=== PATIENT | male | born 1980 | race Caucasian/White ===

== ENCOUNTER 2020-08-26 20:22 | Emergency (ER) | payer SELFPAY ==
[~2020-08-26] VITALS: Ht 177.8 cm; Wt 127.9 kg
[2020-08-26 20:25] VITALS: BP 150/100
--- NOTE | 2020-08-26 20:31 | NUR ---
PT AMBULATED TO ER BED 7 W/ STEADY GAIT.
--- NOTE | 2020-08-26 20:36 | NUR ---
ERMD AT BEDSIDE FOR MEDICAL EVALUATION.
--- NOTE | 2020-08-26 20:45 | NUR ---
DR. DUONG AT BEDSIDE
--- NOTE | 2020-08-26 20:50 | NUR ---
PATIENT PRESENTS TO ED WITH VAGUE COMPLAINTS INCLUDING LEFT THIGH PAIN . PT STATES I SAW MY PMD TODAY, HE GAVE ME NEW MEDICINE FOR HIGH BLOOD PRESSURE . DENIES N/V/D; SKIN IS PINK/WARM/DRY; AAOX4 WITH EVEN AND STEADY GAIT; LUNGS CLEAR BL; HR EVEN AND REGULAR; PT DENIES ANY FEVER, CP, SOB, OR COUGH AT THIS TIME; PATIENT STATES PAIN OF 0/10 AT THIS TIME; VSS; PATIENT POSITIONED FOR COMFORT; HOB ELEVATED; BEDRAILS UP X2; BED DOWN. ER MD MADE AWARE OF PT STATUS.
[2020-08-26 20:57] VITALS: BP 150/100
--- NOTE | 2020-08-26 20:57 | NUR ---
Patient discharged with v/s stable. Written and verbal after care instructions given and explained. Patient verbalized understanding. Ambulatory with steady gait. All questions addressed prior to discharge. Advised to follow up with PMD.
== END 2020-08-26 20:57 | disposition home or self-care (01) ==
LOC: MED 20:22
DX: R42 Dizziness and giddiness (principal); I10 Essential (primary) hypertension; E11.9 Type 2 diabetes mellitus without complications; Z88.0 Allergy status to penicillin; Z79.899 Other long term (current) drug therapy
CPT/HCPCS: 99281; 99283

== ENCOUNTER 2020-10-23 18:30 | Emergency (ER) | payer MEDICAID ==
[~2020-10-23] VITALS: Ht 177.8 cm; Wt 122.5 kg
[2020-10-23 18:52] VITALS: BP 152/98
--- NOTE | 2020-10-23 18:55 | NUR ---
AMBULATED TO BED 7
--- NOTE | 2020-10-23 19:04 | NUR ---
40 Y/O MALE C/O BACK PAIN RADIATES TO LEFT SHOULDER AND CHEST 10/10 DESCRIBES SHARP AND SORE. TODAY NECK CRAMPS AND WORSENING BACK 10/10 AND CHEST PAIN 2/10 SYMPTOMS X1 MONTH PT DENIES N/V, DENIES FEVER/CHILLS. PT DENIES RECENT TRAUMA. PMH: HTN, HLD, DM RX: METROPOLOL, ASA, HYDROCHLOROTIAZIDE, METFORMIN ALLERGIES TO AMOXICILLIN
--- NOTE | 2020-10-23 19:17 | NUR ---
RECIVED PATIENT REPORT FROM CATHY JAMES, TRANSFER OF CARE.
--- NOTE | 2020-10-23 19:29 | NUR ---
Pt's current Accu check 108 and oral temperature 98.0 F.
--- NOTE | 2020-10-23 20:10 | NUR ---
ERMD AT BEDSIDE EVALUATING PATIENT.
[2020-10-23] MEDS ORDERED: ACETAMINOPHEN 650 MG SUPP RC ONE (20:30)
[2020-10-23] MEDS ORDERED: ACETAMINOPHEN EXTRA STRENGTH 500 MG TAB PO ONE (20:50)
[2020-10-23 20:51] LABS: BASOPHILS % (AUTO) 0.4 % (0.0-2.0); EOSINOPHILS # (AUTO) 0.2 K/uL (0-0.4); EOSINOPHILS % (AUTO) 1.8 % (0.0-4.0); HEMATOCRIT 43.1 % (36-52); HEMOGLOBIN 14.6 g/dL (12.0-18.0); LYMPHOCYTES # (AUTO) 1.7 K/uL (2.0-11.5); LYMPHOCYTES % (AUTO) 18.5 % (20.5-51.1); MEAN CORPUSCULAR HEMOGLOBIN 28 pg (27-31); MEAN CORPUSCULAR HGB CONC 34 g/dL (33-37); MEAN CORPUSCULAR VOLUME 81.7 fL (80-94); MONOCYTES # (AUTO) 0.6 K/uL (0.8-1.0); MONOCYTES % (AUTO) 6.1 % (1.7-9.3); NEUTROPHILS # (AUTO) 6.9 K/uL (1.8-7.7); NEUTROPHILS % (AUTO) 73.2 % (42.2-75.2); PLATELET COUNT (AUTO) 247 K/uL (140-450); RED BLOOD CELL COUNT(AUTO) 5.28 MIL/uL (4.20-6.10); RED CELL DISTRIBUTION WIDTH 13.1 % (11.6-13.7); WHITE BLOOD COUNT (AUTO) 9.4 K/uL (4.8-10.8)
--- NOTE | 2020-10-23 21:00 | NUR ---
XRAY AT BEDSIDE.
[2020-10-23 21:02] LABS: PROTHROMBIN TIME 10.2 secs (10.8-13.4)
--- NOTE | 2020-10-23 21:02 | NUR ---
EKG PERFORMED AT BEDSIDE. EKG READS SINUS RHYTHM @ 91
[2020-10-23 21:03] LABS: ALBUMIN 4.2 g/dL (3.4-5.0); ANION GAP 12.5 (8-16); CARBON DIOXIDE 28.3 mmol/L (21-32); CREATININE 1.2 mg/dL (0.6-1.3); POTASSIUM 3.8 mmol/L (3.5-5.1); TOTAL BILIRUBIN 0.5 mg/dL (0.0-1.0)
--- NOTE | 2020-10-23 21:06 | NUR ---
EKG BEING PERFORMED AT BEDSIDE BY EMT.
--- NOTE | 2020-10-23 21:50 | NUR ---
Note [email or web address] in EDM - 10/23/20 at 2159 by [email or web address] Patient discharged with v/s stable. Written and verbal after care instructions given and explained to parent/guardian. Parent/Guardian verbalized understanding of instructions. Ambulatory with steady gait. All questions addressed prior to discharge. ID band removed. Parent/Guardian advised to follow up with PMD. Rx of ZOFRAN, MIRALAX given. Parent/Guardian educated on indication of medication including possible reaction and side effects. Opportunity to ask questions provided and answered.
[2020-10-23 21:55] VITALS: BP 154/92
--- NOTE | 2020-10-23 21:55 | NUR ---
Patient discharged with v/s stable. Written and verbal after care instructions given and explained. Patient alert, oriented and verbalized understanding of instructions. Ambulatory with steady gait. All questions addressed prior to discharge. ID band removed. Patient advised to follow up with PMD. Rx of LIDOCAINE, NAPROXEN given. Patient educated on indication of medication including possible reaction and side effects. Opportunity to ask questions provided and answered.
== END 2020-10-23 21:55 | disposition home or self-care (01) ==
LOC: MED 18:30
DX: M25.512 Pain in left shoulder (principal); E11.9 Type 2 diabetes mellitus without complications; I10 Essential (primary) hypertension; E78.00 Pure hypercholesterolemia, unspecified; Z88.1 Allergy status to other antibiotic agents
CPT/HCPCS: 36415; 71045; 73030; 80053; 83880; 84484; 85025; 85610; 85730; 93005; 99285

== ENCOUNTER 2020-12-05 14:11 | Emergency (ER) | payer MEDICAID ==
[~2020-12-05] VITALS: Ht 177.8 cm; Wt 117.0 kg
[2020-12-05 14:13] VITALS: BP 138/92
--- NOTE | 2020-12-05 14:23 | NUR ---
C/O HEADACHE , NAUSEA X 5DAYS AND LEFT CHEST PAIN X 2 DAYS . BLOOD SUGAR 104, BP 138/92 AT THIS TIME. PMH: HTN, DM, HLD
[2020-12-05 14:46] LABS: BASOPHILS % (AUTO) 0.6 % (0.0-2.0); EOSINOPHILS # (AUTO) 0.3 K/uL (0-0.4); EOSINOPHILS % (AUTO) 4.5 % (0.0-4.0); HEMATOCRIT 45.4 % (36-52); LYMPHOCYTES # (AUTO) 1.8 K/uL (2.0-11.5); LYMPHOCYTES % (AUTO) 25.6 % (20.5-51.1); MEAN CORPUSCULAR HEMOGLOBIN 27 pg (27-31); MEAN CORPUSCULAR HGB CONC 33 g/dL (33-37); MEAN CORPUSCULAR VOLUME 82.9 fL (80-94); MONOCYTES # (AUTO) 0.5 K/uL (0.8-1.0); MONOCYTES % (AUTO) 7.2 % (1.7-9.3); NEUTROPHILS # (AUTO) 4.4 K/uL (1.8-7.7); NEUTROPHILS % (AUTO) 62.1 % (42.2-75.2); PLATELET COUNT (AUTO) 246 K/uL (140-450); RED BLOOD CELL COUNT(AUTO) 5.48 MIL/uL (4.20-6.10); RED CELL DISTRIBUTION WIDTH 13.6 % (11.6-13.7); WHITE BLOOD COUNT (AUTO) 7.2 K/uL (4.8-10.8)
[2020-12-05 15:05] LABS: ALBUMIN 4.2 g/dL (3.4-5.0); ANION GAP 14.2 (8-16); CARBON DIOXIDE 28.5 mmol/L (21-32); CREATININE 1.4 mg/dL (0.6-1.3); POTASSIUM 3.7 mmol/L (3.5-5.1); TOTAL BILIRUBIN 0.3 mg/dL (0.0-1.0)
[2020-12-05 15:08] LABS: PROTHROMBIN TIME 9.9 secs (10.8-13.4)
[2020-12-05] MEDS ORDERED: KETOROLAC 15 MG/ML VIAL IVP ONE (15:35)
[2020-12-05] MEDS ORDERED: NACL 0.9% 1,000 ML IV ONE (15:35)
[2020-12-05 18:09] VITALS: BP 138/92
== END 2020-12-05 18:14 | disposition home or self-care (01) ==
LOC: MED 14:11
DX: R51.9 Headache, unspecified (principal); R07.89 Other chest pain; E11.9 Type 2 diabetes mellitus without complications; I10 Essential (primary) hypertension; E78.5 Hyperlipidemia, unspecified; Z88.1 Allergy status to other antibiotic agents
CPT/HCPCS: 36415; 71045; 80053; 84484; 85025; 85610; 85730; 93005; 96361; 96374; 99285; J1885

== ENCOUNTER 2021-01-10 16:00 | Emergency (ER) | payer MEDICAID ==
[~2021-01-10] VITALS: Ht 177.8 cm; Wt 117.5 kg
[2021-01-10 16:07] VITALS: BP 131/81
--- NOTE | 2021-01-10 16:48 | NUR ---
40 Y/O MALE BIB SELF C/O NON RADIATING CHEST PAIN X 3 DAYS AND CHRONIC BACK PAIN. DENIES SOB/ COUGH. PT PLACED ON BEDSIDE MONITOR. A&O X4. POSITIONED FOR COMFORT, BED LOCKED, IN LOWEST POSITION. PMH: DM II, HTN, HLD MEDS: IBUPROFEN, NAPROXEN, ASA 81MG, METOPROLOL, LOSARTAN, METFORMIN, LIPITOR AND UNKNOWN DIURETIC. NKA
--- NOTE | 2021-01-10 16:49 | NUR ---
Dr. Beckman is evaluating patient at bedside.
--- NOTE | 2021-01-10 17:08 | NUR ---
X-ray at bedside.
[2021-01-10 17:30] LABS: BASOPHILS % (AUTO) 0.2 % (0.0-2.0); EOSINOPHILS # (AUTO) 0.3 K/uL (0-0.4); HEMATOCRIT 44.9 % (36-52); HEMOGLOBIN 14.9 g/dL (12.0-18.0); LYMPHOCYTES # (AUTO) 1.6 K/uL (2.0-11.5); LYMPHOCYTES % (AUTO) 23.1 % (20.5-51.1); MEAN CORPUSCULAR HEMOGLOBIN 28 pg (27-31); MEAN CORPUSCULAR HGB CONC 33 g/dL (33-37); MEAN CORPUSCULAR VOLUME 83.7 fL (80-94); MONOCYTES # (AUTO) 0.5 K/uL (0.8-1.0); MONOCYTES % (AUTO) 6.5 % (1.7-9.3); NEUTROPHILS # (AUTO) 4.7 K/uL (1.8-7.7); NEUTROPHILS % (AUTO) 66.2 % (42.2-75.2); PLATELET COUNT (AUTO) 259 K/uL (140-450); RED BLOOD CELL COUNT(AUTO) 5.36 MIL/uL (4.20-6.10); RED CELL DISTRIBUTION WIDTH 13.9 % (11.6-13.7); WHITE BLOOD COUNT (AUTO) 7.1 K/uL (4.8-10.8)
[2021-01-10 17:45] LABS: ALBUMIN 4.4 g/dL (3.4-5.0); ANION GAP 10.4 (8-16); CREATININE 1.6 mg/dL (0.6-1.3); POTASSIUM 4.4 mmol/L (3.5-5.1); TOTAL BILIRUBIN 0.6 mg/dL (0.0-1.0)
[2021-01-10] MEDS ORDERED: LABETALOL 100 MG/20 ML VIAL IVP ONE (17:45)
[2021-01-10 18:13] VITALS: BP 131/81
== END 2021-01-10 18:14 | disposition home or self-care (01) ==
LOC: MED 16:00
DX: R07.89 Other chest pain (principal); I10 Essential (primary) hypertension; M54.9 Dorsalgia, unspecified; E11.9 Type 2 diabetes mellitus without complications; E78.5 Hyperlipidemia, unspecified; Z88.1 Allergy status to other antibiotic agents
CPT/HCPCS: 36415; 71045; 80053; 84484; 85025; 93005; 99285

== ENCOUNTER 2021-01-24 01:08 | Emergency (ER) | payer MEDICAID ==
[~2021-01-24] VITALS: Ht 177.8 cm; Wt 120.7 kg
[2021-01-24 01:12] VITALS: BP 156/95
--- NOTE | 2021-01-24 01:18 | NUR ---
PT AMBULATORY TO BED #11
--- NOTE | 2021-01-24 01:18 | NUR ---
VISUAL ACUITY FOLLOWS: R- 20/40, LT- 20/40, BOTH- 20/25.
--- NOTE | 2021-01-24 01:20 | NUR ---
ERMD AT BEDSIDE FOR MEDICAL EVALUATION.
--- NOTE | 2021-01-24 01:25 | NUR ---
PT ASSESSMENT COMPLETED BY MONICA , NO NURSING INTERVENTIONS NEEDED AT THIS TIME.
[2021-01-24 01:56] VITALS: BP 143/84
== END 2021-01-24 01:56 | disposition home or self-care (01) ==
LOC: MED 01:08
DX: H53.8 Other visual disturbances (principal); M79.10 Myalgia, unspecified site; E11.9 Type 2 diabetes mellitus without complications; I10 Essential (primary) hypertension; Z88.1 Allergy status to other antibiotic agents
CPT/HCPCS: 99282

== ENCOUNTER 2021-02-17 14:39 | Emergency (ER) | payer MEDICAID ==
[~2021-02-17] VITALS: Ht 177.8 cm; Wt 115.7 kg
[2021-02-17 14:48] VITALS: BP 150/89
--- NOTE | 2021-02-17 14:53 | NUR ---
Pt ambulated to ER bed 7 with steady gait.
--- NOTE | 2021-02-17 15:09 | NUR ---
RN at pt bedside for further evaluation.
--- NOTE | 2021-02-17 15:14 | NUR ---
41 YEAR OLD MALE COMPLAINS OF CONGESTION X 3 DAYS. PT DENIES COUGH, BUT STATES HE HAS TROUBLE BREATHING AT TIMES. PT AOX4, BREATHING EVEN AND UNLABORED, SKIN WARM AND DRY. BED IN LOWEST POSITION, LOCKED, BED RAIL UPX1. PMH - DM2, HTN ALLERGIES - AMOXICILLIN
[2021-02-17 16:41] VITALS: BP 150/89
== END 2021-02-17 16:42 | disposition home or self-care (01) ==
LOC: MED 14:39
DX: K57.92 Diverticulitis of intestine, part unspecified, without perforation or abscess without bleeding (principal); R07.9 Chest pain, unspecified; E11.9 Type 2 diabetes mellitus without complications; I10 Essential (primary) hypertension; Z88.1 Allergy status to other antibiotic agents
CPT/HCPCS: 71045; 93005; 99283

== ENCOUNTER 2021-03-01 22:31 | Emergency (ER) | payer SELFPAY ==
[~2021-03-01] VITALS: Ht 175.3 cm; Wt 118.4 kg
[2021-03-01 22:35] VITALS: BP 166/97
--- NOTE | 2021-03-01 22:40 | NUR ---
PT. IS A 41 Y/O MALE THAT CAME INTO ED WITH C/O OF NECK PAIN. PT. STATES THAT THE PAIN STARTED 3 DAYS AGO AND "HURTS MORE DURING NIGHTTIME." HE RATES HIS PAIN AT A 6/10 ON THE PAIN SCALE. PT. ALSO STATES HE "FEELS A BALL ON HIS NECK." SKIN IS PINK/WARM/DRY; AAOX4 WITH EVEN AND STEADY GAIT; HR EVEN AND REGULAR; PT DENIES ANY FEVER, CP, SOB, OR COUGH AT THIS TIME; VSS; PATIENT POSITIONED FOR COMFORT; HOB ELEVATED; BEDRAILS UP X2; BED DOWN. ER MD MADE AWARE OF PT STATUS. PMH: HTN, DM 2 ALLERGIES: AMOXICILLIN
--- NOTE | 2021-03-01 22:50 | NUR ---
DR. UREÑA AT BEDSIDE FOR EXAMINATION.
[2021-03-01] MEDS ORDERED: KETOROLAC 30 MG/ML VIAL IM ONE (23:10)
--- NOTE | 2021-03-02 00:05 | NUR ---
STREP SWAB DONE AND TAKEN TO LAB.
--- NOTE | 2021-03-02 00:30 | NUR ---
PT. SITTING COMFORTABLY IN BED AND VOICES NO COMPLAINTS.
[2021-03-02] MEDS ORDERED: CEPH-588 PO (00:42)
[2021-03-02] MEDS ORDERED: IBUP-1842 PO (00:42)
[2021-03-02 00:54] VITALS: BP 153/95
--- NOTE | 2021-03-02 00:54 | NUR ---
Patient discharged with v/s stable. Written and verbal after care instructions given and explained. Patient alert, oriented and verbalized understanding of instructions. Ambulatory with steady gait. All questions addressed prior to discharge. ID band removed. Patient advised to follow up with PMD. Rx of KEFLEX AND MOTRIN given. Patient educated on indication of medication including possible reaction and side effects. Opportunity to ask questions provided and answered.
== END 2021-03-02 00:54 | disposition home or self-care (01) ==
LOC: MED 22:31
DX: R59.0 Localized enlarged lymph nodes (principal); M54.2 Cervicalgia; E11.9 Type 2 diabetes mellitus without complications; I10 Essential (primary) hypertension; Z88.0 Allergy status to penicillin
CPT/HCPCS: 86308; 87081; 96372; 99283; J1885

== ENCOUNTER 2021-03-05 21:55 | Emergency (ER) | payer SELFPAY ==
[~2021-03-05] VITALS: Ht 177.8 cm; Wt 115.7 kg
[~2021-03-05 21:55] MED LIST: CEPH-588 PO; IBUP-1842 PO
[2021-03-05 22:03] VITALS: BP 169/90
--- NOTE | 2021-03-05 22:05 | NUR ---
TO LOBBY A/W BED AMBULATORY
--- NOTE | 2021-03-05 23:18 | NUR ---
PATIENT LEFT WITHOUT BEING SEEN BY DR. LU. NO FURTHER CARE PROVIDED FOR PATIENT.
== END 2021-03-05 23:18 | disposition left against medical advice (07) ==
LOC: MED 21:55
DX: J02.9 Acute pharyngitis, unspecified (principal); Z53.21 Procedure and treatment not carried out due to patient leaving prior to being seen by health care provider

== ENCOUNTER 2021-03-11 02:42 | Emergency (ER) | payer SELFPAY ==
[~2021-03-11] VITALS: Ht 177.8 cm; Wt 114.3 kg
[2021-03-11 02:55] VITALS: BP 167/102
--- NOTE | 2021-03-11 02:55 | NUR ---
TO BED AMBULATORY
--- NOTE | 2021-03-11 03:25 | NUR ---
Patient assessment completed per ERMD, no nursing interventions required at this time.
[2021-03-11 04:22] VITALS: BP 167/102
== END 2021-03-11 04:22 | disposition home or self-care (01) ==
LOC: MED 02:42
DX: R59.0 Localized enlarged lymph nodes (principal); E11.9 Type 2 diabetes mellitus without complications; I10 Essential (primary) hypertension; Z88.0 Allergy status to penicillin
CPT/HCPCS: 99281

== ENCOUNTER 2021-03-14 20:55 | Emergency (ER) | payer MEDICAID ==
[~2021-03-14] VITALS: Ht 177.8 cm; Wt 114.3 kg
[2021-03-14 21:05] VITALS: BP 164/105
--- NOTE | 2021-03-14 21:05 | NUR ---
TO BED AMBULATORY
[2021-03-14] MEDS ORDERED: CLONIDINE HYDROCHLORIDE 0.1 MG TAB PO ONE (21:10)
--- NOTE | 2021-03-14 21:15 | NUR ---
PT BIB SELF FOR C/O HIGH BP, STATING "I FEEL LIKE I CANT CALM MYSELF." PT REPORTS NECK PAIN X 2 WEEKS, STATING HE HAS BEEN GOOGLING WHAT COULD BE WRONG WHICH HAS BEEN CAUSING HIM ANXIETY. PT REPORTS HX OF HTN AND TAKES MEDICATIONS AT HOME. PT DENIES CP, SOB, FEVER, CHILLS, N/V/D. HX: HTN, DM2, HIGH CHOLESTEROL ALLERGIES: AMOXICILLIN
--- NOTE | 2021-03-14 21:19 | NUR ---
ERMD AT BEDSIDE.
[2021-03-14] MEDS ORDERED: ATA25 PO (21:30)
--- NOTE | 2021-03-14 21:32 | NUR ---
BP 160/85. ERMD MADE AWARE. PT DENIES PAIN OR DISCOMFORT AT THIS TIME.
[2021-03-14 21:35] VITALS: BP 160/85
--- NOTE | 2021-03-14 21:35 | NUR ---
Patient discharged with v/s stable. Written and verbal after care instructions given and explained. Patient alert, oriented and verbalized understanding of instructions. Ambulatory with steady gait. All questions addressed prior to discharge. ID band removed. Patient advised to follow up with PMD. Rx of ATARAX HCL given. Patient educated on indication of medication including possible reaction and side effects. Opportunity to ask questions provided and answered.
== END 2021-03-14 21:35 | disposition home or self-care (01) ==
LOC: MED 20:55
DX: F41.9 Anxiety disorder, unspecified (principal); I10 Essential (primary) hypertension; E11.9 Type 2 diabetes mellitus without complications; Z88.0 Allergy status to penicillin; Z90.49 Acquired absence of other specified parts of digestive tract
CPT/HCPCS: 99283

== ENCOUNTER 2021-03-18 19:38 | Emergency (ER) | payer MEDICAID ==
[~2021-03-18] VITALS: Ht 177.8 cm; Wt 114.3 kg
[~2021-03-18 19:38] MED LIST changes: +ATA25 PO
[2021-03-18 20:05] VITALS: BP 150/91
--- NOTE | 2021-03-18 20:08 | NUR ---
TO LOBBY A/W BED AMBULATORY
--- NOTE | 2021-03-18 20:44 | NUR ---
PT TAKEN TO BED 9
[2021-03-18] MEDS ORDERED: [UNRECOGNIZED DRUG - CODE] PO (21:35)
--- NOTE | 2021-03-18 21:40 | NUR ---
Covid Swab collected and walked to lab.
[2021-03-18 21:48] VITALS: BP 150/91
== END 2021-03-18 21:48 | disposition home or self-care (01) ==
LOC: MED 19:38
DX: R51.9 Headache, unspecified (principal); Z20.822 Contact with and (suspected) exposure to COVID-19; E11.9 Type 2 diabetes mellitus without complications; I10 Essential (primary) hypertension; Z88.0 Allergy status to penicillin; Z79.899 Other long term (current) drug therapy
CPT/HCPCS: 99283; U0003

== ENCOUNTER 2021-04-13 17:08 | Emergency (ER) | payer MEDICAID ==
[~2021-04-13] VITALS: Ht 177.8 cm; Wt 113.4 kg
[~2021-04-13 17:08] MED LIST changes: +[UNRECOGNIZED DRUG - CODE] PO
[2021-04-13 17:11] VITALS: BP 147/91
--- NOTE | 2021-04-13 17:13 | NUR ---
Patient ambulated to bed 11 with steady/even gait.
--- NOTE | 2021-04-13 17:25 | NUR ---
C/O BILATERAL LATERAL NECK PAIN RADIATING TO EARS X 2 MONTHS, SEEN IN FEBRUARY FOR SAME. NOW C/O OCCIPITAL H.A. X 3 DAYS, DENIES DIZZINESS, NAUSEA VOMITING, CONFUSION, VISUAL CHANGES. SPEAKS IN FULL SENTENCES. RESP EVEN AND UNLAB SKIN IS W/D ABD SOFT AND NON DISTENDED, NEURO CHECK WNL. BED IN LOW LOCKED POSITION FOR SAFETY. TL YEUNG AT BEDSIDE FOR INITIAL EXAM AND EVAL.
--- NOTE | 2021-04-13 17:25 | NUR ---
ANJANA Dominguez is evaluating patient at bedside.
[2021-04-13] MEDS ORDERED: METH-1681 PO (17:37)
[2021-04-13] MEDS ORDERED: NAPR-54 PO (17:37)
[2021-04-13 17:50] VITALS: BP 137/88
--- NOTE | 2021-04-13 17:51 | NUR ---
Patient discharged with v/s stable. Written and verbal after care instructions given and explained. Patient alert, oriented and verbalized understanding of instructions. Ambulatory with steady gait. All questions addressed prior to discharge. ID band removed. Patient advised to follow up with PMD. Rx of ROBAXIN AND NAPROSYN given. Patient educated on indication of medication including possible reaction and side effects. Opportunity to ask questions provided and answered. 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 AMBULATED WITH UPRIGHT STEAKY GAIT.
== END 2021-04-13 17:50 | disposition home or self-care (01) ==
LOC: MED 17:08
DX: S16.1XXA Strain of muscle, fascia and tendon at neck level, initial encounter (principal); R51.9 Headache, unspecified; E11.9 Type 2 diabetes mellitus without complications; I10 Essential (primary) hypertension; Z79.899 Other long term (current) drug therapy; Z88.1 Allergy status to other antibiotic agents; X58.XXXA Exposure to other specified factors, initial encounter; Y93.89 Activity, other specified; Y92.89 Other specified places as the place of occurrence of the external cause; Y99.8 Other external cause status
CPT/HCPCS: 99283

== ENCOUNTER 2021-05-10 10:49 | Emergency (ER) | payer SELFPAY ==
[~2021-05-10 10:49] MED LIST changes: +METH-1681 PO; +NAPR-54 PO
--- NOTE | 2021-05-10 11:07 | NUR ---
CALLED X2. NO SHOW.
== END 2021-05-10 11:07 | disposition left against medical advice (07) ==
LOC: MED 10:49
DX: R10.9 Unspecified abdominal pain (principal); Z53.21 Procedure and treatment not carried out due to patient leaving prior to being seen by health care provider

== ENCOUNTER 2021-05-15 22:59 | Emergency (ER) | payer SELFPAY ==
[~2021-05-15] VITALS: Ht 177.8 cm; Wt 113.4 kg
[2021-05-15 23:20] VITALS: BP 150/95
--- NOTE | 2021-05-15 23:23 | NUR ---
TO LOBBY A/W BED AMBULATORY
--- NOTE | 2021-05-16 00:24 | NUR ---
ERMD AT BEDSIDE.
[2021-05-16 00:55] VITALS: BP 143/88
--- NOTE | 2021-05-16 00:55 | NUR ---
NO NURSING INTERVENTIONS REQUIRED PRIOR TO D/C.
== END 2021-05-16 00:55 | disposition home or self-care (01) ==
LOC: MED 22:59
DX: R10.9 Unspecified abdominal pain (principal); E11.9 Type 2 diabetes mellitus without complications; I10 Essential (primary) hypertension; Z88.1 Allergy status to other antibiotic agents
CPT/HCPCS: 99281

== ENCOUNTER 2021-05-24 10:09 | Emergency (ER) | payer SELFPAY ==
[~2021-05-24] VITALS: Ht 177.8 cm; Wt 113.4 kg
[2021-05-24 10:20] VITALS: BP 138/90
--- NOTE | 2021-05-24 10:39 | NUR ---
PT AMBULATED WITH EVEN AND STEADY GAIT TO ROOM 5
--- NOTE | 2021-05-24 10:40 | NUR ---
PT URINE AT BEDSIDE.
--- NOTE | 2021-05-24 10:45 | NUR ---
41 Y/O M BIB SELF FROM HOME, PATIENT PRESENTS TO ED WITH UPPER ABD/EPIGASTRIC PAIN FOR 3 WEEKS. PT STATES HE HAS BEEN FEELING BLOATED AND HAVING PRESSURE IN ABD AREA. DENIES N/V/D, LAST BM NORMAL THIS MORNING, DENIES HEMATURIA, DYSURIA, BOWEL SOUNDS X4 NORMOACTIVE, ABD NON TENDER WITH PALPITATION, ROUDNED/FIRM; SKIN IS PINK/WARM/DRY; AAOX4 WITH EVEN AND STEADY GAIT; LUNGS CLEAR BL; HR EVEN AND REGULAR; PT DENIES ANY FEVER, CP, SOB, OR COUGH AT THIS TIME; PATIENT STATES PAIN OF 5/10 AT THIS TIME; VSS; PATIENT POSITIONED FOR COMFORT; HOB ELEVATED; BEDRAILS UP X2; BED DOWN. ER MD MADE AWARE OF PT STATUS. PMH: DM2, HTN MED: METFORMIN, LOSARTAN (COMPLIANT WITH MEDS) LAST DOSE THIS AM NKA
--- NOTE | 2021-05-24 10:48 | NUR ---
PT STATES REACTION TO AMOXICILLIN IS HEADACHE. REMOVED OFF ALLEGRY CHART. DENIES HIVES, EDEMA, FACIAL/THROAT SWELLING, SOB, OR CP.
[2021-05-24] MEDS ORDERED: OMEP40EC24 PO (11:00)
[2021-05-24 11:15] VITALS: BP 138/90
--- NOTE | 2021-05-24 11:15 | NUR ---
Patient discharged with v/s stable. Written and verbal after care instructions given and explained. Patient alert, oriented and verbalized understanding of instructions. Ambulatory with steady gait. All questions addressed prior to discharge. ID band removed. Patient advised to follow up with PMD. Rx of PRILOSEC given. Patient educated on indication of medication including possible reaction and side effects. Opportunity to ask questions provided and answered.
== END 2021-05-24 11:15 | disposition home or self-care (01) ==
LOC: MED 10:09
DX: K29.70 Gastritis, unspecified, without bleeding (principal); E11.9 Type 2 diabetes mellitus without complications; I10 Essential (primary) hypertension; Z79.899 Other long term (current) drug therapy; Z90.49 Acquired absence of other specified parts of digestive tract
CPT/HCPCS: 99283

== ENCOUNTER 2021-05-27 09:52 | Emergency (ER) | payer SELFPAY ==
[~2021-05-27] VITALS: Ht 177.8 cm; Wt 115.2 kg
[~2021-05-27 09:52] MED LIST changes: +OMEP40EC24 PO
[2021-05-27 10:02] VITALS: BP 147/91
--- NOTE | 2021-05-27 10:07 | NUR ---
41 Y/O MALE C/O ABD PAIN X1 WEEK. WAS SEEN HERE 4 DAYS FOR SIMILAR SYMPTOMS. PT STATES 10/10 CRAMPING PRESSURE PAIN. REPORTS " I FEEL VERY BLOATED LIKE IM GOING TO POP" PT TOOK TUMS AND OMEPRAZOLE THAT MADE HIM FEEL "WORSE." ABD LARGE, TENDER TO TOUCH. SKIN WARM AND DRY. MEDHX: DM, HTN ALLERGIES: AMOXICILLIN
--- NOTE | 2021-05-27 10:36 | NUR ---
DR URRUTIA AT BEDSIDE EXAMINING PT
[2021-05-27] MEDS ORDERED: DICYCLOMINE HCL LIQUID 20 MG, ALUMINUM HYD/MAG/SIMETHICONE 30 ML, LIDOCAINE VISCOUS 2% ... PO ONE ×3 (10:45)
[2021-05-27] MEDS ORDERED: ALUMINUM HYD/MAG/SIMETHICONE 30 ML UDC ONE (10:48)
[2021-05-27] MEDS ORDERED: DICYCLOMINE HCL LIQUID 10 MG/5 ML UDC ONE (10:48)
--- NOTE | 2021-05-27 10:51 | NUR ---
PT TAKEN TO CT SCAN VIA W/C
--- NOTE | 2021-05-27 10:56 | NUR ---
PT TAKEN TO ER BED 7 VIA W/C.
--- NOTE | 2021-05-27 11:00 | NUR ---
PT RETURNED FROM CT SCAN
--- NOTE | 2021-05-27 11:22 | NUR ---
BLOOD LABS COLLECTED AND SENT TO LAB WITH ANGELA ROOT
[2021-05-27 11:31] LABS: BASOPHILS % (AUTO) 0.3 % (0.0-2.0); EOSINOPHILS # (AUTO) 0.3 K/uL (0-0.4); EOSINOPHILS % (AUTO) 4.4 % (0.0-4.0); HEMOGLOBIN 15.4 g/dL (12.0-18.0); LYMPHOCYTES # (AUTO) 1.3 K/uL (2.0-11.5); LYMPHOCYTES % (AUTO) 21.5 % (20.5-51.1); MEAN CORPUSCULAR HEMOGLOBIN 29 pg (27-31); MEAN CORPUSCULAR HGB CONC 34 g/dL (33-37); MEAN CORPUSCULAR VOLUME 85.3 fL (80-94); MONOCYTES # (AUTO) 0.4 K/uL (0.8-1.0); MONOCYTES % (AUTO) 6.8 % (1.7-9.3); NEUTROPHILS # (AUTO) 3.9 K/uL (1.8-7.7); PLATELET COUNT (AUTO) 241 K/uL (140-450); RED CELL DISTRIBUTION WIDTH 13.6 % (11.6-13.7); WHITE BLOOD COUNT (AUTO) 5.9 K/uL (4.8-10.8)
[2021-05-27 11:47] LABS: ALBUMIN 4.5 g/dL (3.4-5.0); ANION GAP 12.3 (8-16); CARBON DIOXIDE 31.4 mmol/L (21-32); CREATININE 1.3 mg/dL (0.6-1.3); POTASSIUM 3.7 mmol/L (3.5-5.1); TOTAL BILIRUBIN 0.3 mg/dL (0.0-1.0)
[2021-05-27 12:23] LABS: APPEARANCE,URINE CLEAR (CLEAR); BILIRUBIN,URINE NEGATIVE (NEGATIVE); BLOOD, URINE NEGATIVE (NEGATIVE); COLOR,URINE YELLOW (YELLOW); LEUKOCYTE ESTERASE ,URINE NEGATIVE (NEGATIVE); NITRITE, URINE NEGATIVE (NEGATIVE); UGLUCOSE NEGATIVE (NEGATIVE)
[2021-05-27 12:36] LABS: RBC,URINE 0-5 /HPF (0-5); WBC,URINE 0-5 /HPF (0-5)
[2021-05-27] MEDS ORDERED: MAG-27 PO (13:09)
[2021-05-27] MEDS ORDERED: BEN10 PO (13:09)
[2021-05-27 13:16] VITALS: BP 144/64
--- NOTE | 2021-05-27 13:16 | NUR ---
Patient discharged with v/s stable. Written and verbal after care instructions given and explained. Patient alert, oriented and verbalized understanding of instructions. Ambulatory with steady gait. All questions addressed prior to discharge. ID band removed. Patient advised to follow up with PMD. Rx of BENTYL AND MYLANTA MAXIMUM STRENGTH LIQ given. Patient educated on indication of medication including possible reaction and side effects. Opportunity to ask questions provided and answered.
== END 2021-05-27 13:16 | disposition home or self-care (01) ==
LOC: MED 09:52
DX: R10.10 Upper abdominal pain, unspecified (principal); R14.0 Abdominal distension (gaseous); E11.9 Type 2 diabetes mellitus without complications; I10 Essential (primary) hypertension; Z88.0 Allergy status to penicillin
CPT/HCPCS: 36415; 80053; 81001; 83690; 85025; 99284

== ENCOUNTER 2021-06-21 15:05 | Emergency (ER) | payer SELFPAY ==
[~2021-06-21 15:05] MED LIST changes: +BEN10 PO; +MAG-27 PO
--- NOTE | 2021-06-21 15:09 | NUR ---
PATIENT LEFT WITHOUT BEING TRIAGED. NO FURTHER CARE PROVIDED FOR PATIENT.
== END 2021-06-21 15:09 | disposition left against medical advice (07) ==
LOC: MED 15:05
DX: R51.9 Headache, unspecified (principal); Z53.21 Procedure and treatment not carried out due to patient leaving prior to being seen by health care provider

== ENCOUNTER 2021-06-21 22:19 | Emergency (ER) | payer SELFPAY ==
[~2021-06-21] VITALS: Ht 177.8 cm; Wt 115.4 kg
[2021-06-21 22:35] VITALS: BP 158/88
[2021-06-21] MEDS ORDERED: diphenhydrAMINE 50 MG/ML VIAL IM ONE (23:40)
[2021-06-21] MEDS ORDERED: PANTOPRAZOLE 40 MG TABEC PO ONE (23:40)
[2021-06-21] MEDS ORDERED: KETOROLAC 30 MG/ML VIAL IM ONE (23:40)
[2021-06-21] MEDS ORDERED: PROCHLORPERAZINE 10 MG/2 ML VIAL IM ONE (23:40)
[2021-06-22 01:07] VITALS: BP 158/88
== END 2021-06-22 01:07 | disposition home or self-care (01) ==
LOC: MED 22:19
DX: R51.9 Headache, unspecified (principal); I10 Essential (primary) hypertension; E11.9 Type 2 diabetes mellitus without complications; Z79.899 Other long term (current) drug therapy; Z88.1 Allergy status to other antibiotic agents
CPT/HCPCS: 96372; 99284; J0780; J1200; J1885

== ENCOUNTER 2021-06-26 12:58 | Emergency (ER) | payer SELFPAY ==
[~2021-06-26] VITALS: Ht 177.8 cm; Wt 117.2 kg
[2021-06-26 13:10] VITALS: BP 153/92
--- NOTE | 2021-06-26 15:20 | NUR ---
41/M PRESENTS TO ED WITH C/O HEADACHE X3 WEEKS. PATIENT DENIES RECENT INJURY OR TRAUMA, STATING PAIN HAS BEEN INTERMITTENT. PATIENT REPORTS TAKING TYLENOL AND IBUPROFEN WITH MILD RELIEF, DENIES BLURRED VISION. DENIES CP, SOB, FEVER OR CHILLS. NO SLURRED SPEECH, PATIENT SPEAKING IN FULL CLEAR SENTENCES.
[2021-06-26] MEDS: NACL 0.9% 1,000 ML IV ONE (15:30)
[2021-06-26] MEDS ORDERED: METOCLOPRAMIDE 10 MG/2 ML INJ VIAL ONE (15:31)
[2021-06-26] MEDS ORDERED: diphenhydrAMINE 50 MG/ML VIAL ONE (15:31)
[2021-06-26] MEDS: METOCLOPRAMIDE 10 MG/2 ML INJ VIAL IVP ONE (15:42)
[2021-06-26] MEDS: diphenhydrAMINE 50 MG/ML VIAL IVP ONE (15:42)
[2021-06-26] MEDS: LORazepam 0.5 MG TAB PO ONE (16:00)
--- NOTE | 2021-06-26 16:00 | NUR ---
PATIENT REMOVED MONITOR LEADS, REQUESTING HIS IV BE REMOVED. REPORTS FEELING ANXIOUS, DR IRENE MADE AWARE.
[2021-06-26 18:07] VITALS: BP 142/86
== END 2021-06-26 18:07 | disposition home or self-care (01) ==
LOC: MED 12:58
DX: R51.9 Headache, unspecified (principal); E11.9 Type 2 diabetes mellitus without complications; I10 Essential (primary) hypertension; Z90.49 Acquired absence of other specified parts of digestive tract; Z79.899 Other long term (current) drug therapy; Z79.1 Long term (current) use of non-steroidal anti-inflammatories (NSAID); Z79.2 Long term (current) use of antibiotics; Z88.0 Allergy status to penicillin
CPT/HCPCS: 70450; 96361; 96374; 96375; 99284; J1200; J2765; J7030

== ENCOUNTER 2022-03-04 17:00 | Emergency (ER) | payer SELFPAY ==
[~2022-03-04] VITALS: Ht 177.8 cm; Wt 112.5 kg
[2022-03-04 17:07] VITALS: BP 147/79
--- NOTE | 2022-03-04 17:50 | NUR ---
ANJANA REDD ATTEMPTED TO CALL PT BACK, NO ANSWER IN LOBBY/OUTSIDE
--- NOTE | 2022-03-04 18:15 | NUR ---
ANJANA REDD ATTEMPTED TO CALL PT BACK X2, NO ANSWER IN LOBBY/OUTSIDE
--- NOTE | 2022-03-04 18:30 | NUR ---
LAST ATTEMPT, ANJANA REDD ATTEMPTED TO CALL PT BACK X3, NO ANSWER IN LOBBY/OUTSIDE PATIENT LEFT WITHOUT BEING SEEN BY DR. HENRY. NO FURTHER CARE PROVIDED FOR PATIENT.
--- NOTE | 2022-03-04 19:04 | NUR ---
Barry granda in ED - 03/04/22 at 1905 by [email or web address] ANJANA REDD ATTEMPTED TO CALL PT BACK AT 1750, NO ANSWER IN LOBBY/OUTSIDE
== END 2022-03-04 18:30 | disposition left against medical advice (07) ==
LOC: MED 17:00
DX: R53.1 Weakness (principal); Z53.21 Procedure and treatment not carried out due to patient leaving prior to being seen by health care provider

== ENCOUNTER 2023-05-18 05:59 | Emergency (ER) | payer SELFPAY ==
[~2023-05-18] VITALS: Ht 177.8 cm; Wt 108.9 kg
[2023-05-18 06:10] VITALS: BP 127/71; PULSE 74; RESP 16; TEMP 97.4; O2SAT 99
[2023-05-18] MEDS ORDERED: ATA25 PO (07:52)
[2023-05-18 07:53] VITALS: O2SAT 99
[2023-05-18 07:57] VITALS: BP 143/82; PULSE 88; RESP 16; TEMP 98.5; O2SAT 99
== END 2023-05-18 07:57 | disposition home or self-care (01) ==
LOC: MED 05:59
DX: R00.2 Palpitations (principal); F41.9 Anxiety disorder, unspecified; E11.9 Type 2 diabetes mellitus without complications; I10 Essential (primary) hypertension; Z79.4 Long term (current) use of insulin; Z79.899 Other long term (current) drug therapy; Z90.49 Acquired absence of other specified parts of digestive tract
CPT/HCPCS: 93005; 99283